=== PATIENT | female | born 1990 | race Caucasian/White ===

== ENCOUNTER 2016-07-10 04:05 | Observation (INO) | payer BC ==
[~2016-07-10] VITALS: Ht 165.1 cm; Wt 72.1 kg
[2016-07-10] MEDS ORDERED: LAMICTAL25 MG PO (04:25)
[2016-07-10] MEDS ORDERED: PROZAC40 MG PO (04:25)
[2016-07-10] MEDS ORDERED: MULTIPLE VITAM1 EACH PO (04:25)
[2016-07-10] MEDS ORDERED: ARMOUR THYROID60 MG PO (04:26)
[2016-07-10] MEDS ORDERED: PRENATAL PLUS I1 TAB PO (15:15)
== END 2016-07-11 08:10 | disposition short-term general hospital (02) ==
LOC: ER 04:05 → OBS 08:05 → IP 08:05
PROVIDERS: ADMIT Family Medicine
DX: O99.281 Endocrine, nutritional and metabolic diseases complicating pregnancy, first trimester (principal); E86.0 Dehydration; O99.89 Other specified diseases and conditions complicating pregnancy, childbirth and the puerperium; R19.7 Diarrhea, unspecified; R10.31 Right lower quadrant pain; O21.9 Vomiting of pregnancy, unspecified; Z3A.08 8 weeks gestation of pregnancy; Z87.891 Personal history of nicotine dependence; Z88.1 Allergy status to other antibiotic agents; Z88.2 Allergy status to sulfonamides; Z79.899 Other long term (current) drug therapy; Z90.49 Acquired absence of other specified parts of digestive tract
CPT/HCPCS: A9150; G0378; J2270; J2405; J2550